=== PATIENT | female | born 1970 | race Caucasian/White ===

== ENCOUNTER 2022-03-26 13:27 | Emergency (ER) | payer MEDICAID, OTHER ==
[~2022-03-26] VITALS: Ht 160 cm; Wt 101.2 kg
[2022-03-26 13:36] VITALS: BP 150/68
[2022-03-26 14:10] LABS: BASOPHILS % (AUTO) 0.3 % (0.0-2.0); EOSINOPHILS # (AUTO) 0.4 K/uL (0-0.4); EOSINOPHILS % (AUTO) 3.5 % (0.0-4.0); HEMATOCRIT 38.3 % (36-48); HEMOGLOBIN 13.1 g/dL (12.0-16.0); LYMPHOCYTES # (AUTO) 3.6 K/uL (2.5-16.5); LYMPHOCYTES % (AUTO) 34.6 % (20.5-51.1); MEAN CORPUSCULAR HEMOGLOBIN 30 pg (27-31); MEAN CORPUSCULAR HGB CONC 34 g/dL (33-37); MEAN CORPUSCULAR VOLUME 88.7 fL (80-94); MONOCYTES # (AUTO) 0.6 K/uL (0.8-1.0); MONOCYTES % (AUTO) 5.7 % (1.7-9.3); NEUTROPHILS # (AUTO) 5.8 K/uL (1.8-7.7); NEUTROPHILS % (AUTO) 55.9 % (42.2-75.2); PLATELET COUNT (AUTO) 271 K/uL (140-450); RED BLOOD CELL COUNT(AUTO) 4.32 MIL/uL (4.20-5.40); WHITE BLOOD COUNT (AUTO) 10.3 K/uL (4.8-10.8)
--- NOTE | 2022-03-26 14:15 | NUR ---
51YO FEMALE PT C/O CONSTIPATION, NAUSEA AND PRESSURED LOWER ABD PAIN X3DAYS. LBM 03/23/22. REPORTS BLOOD ON WIPING. STATES TAKING " CHOCOLATE" LAXITIVE "W/O RELIEF. LOWER ABD AND PELVIC TENDER TO TOUCH. DENIES V/D, CHEST PAIN , FEVER OR CHILLS. PT AAOX4, IN VISIBLE DISTRES AND GUARDING ABD. HOB POSITIONED PER COMFORT. HX: HTN NKA
[2022-03-26 14:27] LABS: ALBUMIN 4.3 g/dL (3.4-5.0); ANION GAP 11.6 (8-16); CARBON DIOXIDE 30.9 mmol/L (21-32); CREATININE 0.8 mg/dL (0.6-1.3); POTASSIUM 3.5 mmol/L (3.5-5.1); TOTAL BILIRUBIN 0.9 mg/dL (0.0-1.0)
[2022-03-26 15:44] LABS: APPEARANCE,URINE CLEAR (CLEAR); BILIRUBIN,URINE NEGATIVE (NEGATIVE); BLOOD, URINE TRACE-I (NEGATIVE); COLOR,URINE YELLOW (YELLOW); LEUKOCYTE ESTERASE ,URINE NEGATIVE (NEGATIVE); NITRITE, URINE NEGATIVE (NEGATIVE); UGLUCOSE NEGATIVE (NEGATIVE)
[2022-03-26] MEDS ORDERED: SODIUM PHOSPHATE 118 ML ENEM RC ONE (16:55)
[2022-03-26 17:28] VITALS: BP 138/71
--- NOTE | 2022-03-26 17:30 | NUR ---
PT REPORTS BM X1
[2022-03-26] MEDS ORDERED: MIRABULK PO (17:48)
--- NOTE | 2022-03-26 17:57 | NUR ---
IV removed, catheter intact and site benign. Applied folded 4x4 gauze and tape to stop bleeding.
--- NOTE | 2022-03-26 17:58 | NUR ---
Patient discharged with v/s stable. Written and verbal after care instructions FOR HIGH FIBER DIET AND CONSTIPATION given and explained. Patient alert, oriented and verbalized understanding of instructions. Ambulatory with steady gait. All questions addressed prior to discharge. ID band removed. Patient advised to follow up with PMD. Rx of MIRALAX given. Opportunity to ask questions provided and answered.
--- NOTE | 2022-03-26 17:58 | NUR ---
The patient's care was reviewed and supervised by Anais Prakash RN.
[2022-03-26 20:33] LABS: RBC,URINE 0-5 /HPF (0-5); WBC,URINE 0-5 /HPF (0-5)
[2022-03-26 20:34] LABS: TRICHOMONAS,URINE None Seen /HPF (None Seen); YEAST,URINE None Seen /HPF (None Seen)
== END 2022-03-26 17:58 | disposition home or self-care (01) ==
LOC: MED 13:27
DX: K59.00 Constipation, unspecified (principal); Z90.49 Acquired absence of other specified parts of digestive tract; Z98.890 Other specified postprocedural states
CPT/HCPCS: 36415; 74177; 80053; 81001; 81025; 83690; 85025; 99285; Q9967